=== PATIENT | female | born 1960 | race Two or more races ===

== ENCOUNTER 2025-02-15 06:00 | Day surgery (SDC) | payer OTHER ==
[2025-02-09 11:00] VITALS: BP 130/84
[~2025-02-15] VITALS: Ht 167.6 cm; Wt 76.2 kg
[~2025-02-15 06:00] MED LIST: LOSARTAN-HCTZ1 EAC1 PO; PROAIR RESPICL90 MCG; SINGULAIR5 MG; SYNTHROID50 MCG PO; VITAMIN B-121000 MC4 PO; WIXELA 100-501 EACH; ZYRTEC10 MG PO
[2025-02-15] MEDS ORDERED: CEFAZOLIN SODIUM 1,000 MG VIAL ONE (10:46)
[2025-02-15] MEDS ORDERED: BUPIVACAINE HCL/MPF 0.5% 30ML VIAL ONE (11:58)
[2025-02-15] MEDS ORDERED: LIDOCAINE HCL 1%/EPINEPHRINE 20ML VIAL IJ ONE (11:58)
[2025-02-15] MEDS ORDERED: POVIDONE-IODINE 118 ML BOTT TOP ONE (12:34)
[2025-02-15] MEDS ORDERED: TRAM1TAB98 PO (14:00)
[2025-02-15] MEDS ORDERED: CELECOXIB200 MG PO (14:01)
== END 2025-02-15 15:50 | disposition home or self-care (01) ==
LOC: CIR.AMB 06:00
PROVIDERS: ATTEND Surgery
DX: R15.9 Full incontinence of feces (principal); R15.2 Fecal urgency; I10 Essential (primary) hypertension; J45.909 Unspecified asthma, uncomplicated; Z88.2 Allergy status to sulfonamides
CPT/HCPCS: 64581; 64590; 95972; C1767; C1778